=== PATIENT | female | born 1970 | race Caucasian/White ===

== ENCOUNTER 2022-01-14 17:42 | Emergency (ER) | payer OTHER ==
[~2022-01-14] VITALS: Ht 157.5 cm; Wt 93.9 kg
[2022-01-14 17:48] VITALS: BP 152/95
--- NOTE | 2022-01-14 20:11 | NUR ---
Patient ambulated to bed 2.
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
--- NOTE | 2022-01-14 23:00 | NUR ---
ATTEMPTED IV INSERTION x3 AND UNSUCCESSFUL. CT SCAN WILL BE DELAYED. WILL REATTEMPT ACCESS. DR. CANTU MADE AWARE.
[2022-01-15] MEDS ORDERED: HYDROcodone/APAP 5/325 MG 1 TAB TAB PO ONE (01:55)
[2022-01-15] MEDS ORDERED: IBUP-2213 PO (02:31)
[2022-01-15] MEDS ORDERED: ACET-10509 PO (02:31)
[2022-01-15 02:53] VITALS: BP 126/88
--- NOTE | 2022-01-15 02:54 | NUR ---
Patient discharged with v/s stable. Written and verbal after care instructions given and explained. Patient alert, oriented and verbalized understanding of instructions. Ambulatory with steady gait. All questions addressed prior to discharge. ID band removed. Patient advised to follow up with PMD. Rx of ACETAMINOPHEN AND IBUPROFEN given. Patient educated on indication of medication including possible reaction and side effects. Opportunity to ask questions provided and answered.
== END 2022-01-15 02:54 | disposition home or self-care (01) ==
LOC: MED 17:42
DX: S30.1XXA Contusion of abdominal wall, initial encounter (principal); M54.2 Cervicalgia; R51.9 Headache, unspecified; Z98.890 Other specified postprocedural states; V49.49XA Driver injured in collision with other motor vehicles in traffic accident, initial encounter; Y93.89 Activity, other specified; Y92.89 Other specified places as the place of occurrence of the external cause; Y99.8 Other external cause status
CPT/HCPCS: 74177; 99285; Q9967